=== PATIENT | female | born 1975 | race Caucasian/White ===

== ENCOUNTER 2016-09-05 04:38 | Observation (INO) ==
[2016-09-05] MEDS ORDERED: Ketorolac 30 MG/ML VIAL IVP ONE (04:59)
[2016-09-05] MEDS ORDERED: *HR* HYDROmorphone (PF) 1 MG/ML SYRINGE IVP ONE ×2 (04:59→05:40)
[2016-09-05] MEDS ORDERED: Ondansetron 4 MG/2 ML VIAL IVP ONE (04:59)
--- NOTE | 2016-09-05 05:08 | Emergency Department Note ---
Disposition Clinical Impression: Post-op pain Disposition: Admitted As Inpatient Condition: Good Referrals: Lex Killian DO [Primary Care Provider] - Time of Disposition: 07:01 General Adult HPI - General Stated complaint: "Tightness In Chest Due to Pain Meds" Time Seen by Provider: 09/05/16 04:43 Source: patient Mode of arrival: ambulatory Limitations: no limitations Nursing Notes Reviewed: Yes Vital Signs Reviewed: Yes - History of Present Illness HPI Narrative: Patient returns to the emergency department from home who was seen here a few hours ago for concern for adverse drug reaction after oxycodone. She received hydrocodone on the prior visit and had improvement of symptoms without effect, but returned home with worsening of pain that hydrocodone as well. He notes that she did not her medication at home including hydrocodone, oxycodone, or any NSAIDs. She states that she cannot handle the pain anymore and that she needs something to help with the pain and to help her sleep. She denies any exertional symptoms, pleuritic chest pain, swelling. Prior to taking the pain medication she did not have any symptoms. Pain Scale: 2 - Related Data Previous Rx's Medication Instructions Recorded Clindamycin [Cleocin] 150 mg PO Q6HR #7 capsule 09/03/16 Ibuprofen [Motrin] 800 mg PO Q8HR #30 tablet 09/03/16 OxyCODONE Immed Rel [Roxicodone 5 5 mg PO Q4HR PRN #24 tablet 09/03/16 MG] HYDROcodone/Acet 5/325 mg [Randolph 1 - 2 tab PO Q4H PRN #17 tab 09/05/16 5-325 mg] Naproxen [Naprosyn] 500 mg PO BID #20 tablet 09/05/16 Ondansetron ODT [Zofran ODT] 4 mg SL Q6HR PRN #10 tab.rapdis 09/05/16 Allergies Allergy/AdvReac Type Severity Reaction Status Date / Time Amoxicillin Allergy Hives Verified 07/07/16 11:11 azithromycin Allergy Itching Verified 07/07/16 11:11 acetaminophen [From Tylenol] AdvReac See Verified 09/03/16 09:40 Comments Oxycodone AdvReac Difficulty Verified 09/05/16 01:47 Breathing All systems ED: reviewed and negative except as stated. Past Medical History - Past Medical History Attestation: Yes The following information was validated with the patient. Source: patient Medical history: Reports: arthritis Surgical history: Reports: Psychiatric history: Reports: no psych history - Social History Smoking Status: Never smoker Smokeless Tobacco Status: No Alcohol use: Reports: none Drug use: Reports: none Physical Exam - Head Head exam: atraumatic, normocephalic, normal inspection - Eye Eye exam: Present: normal appearance, PERRL, EOMI - ENT ENT exam: normal exam, normal oropharynx, mucous membranes moist - Neck Neck exam: Present: normal inspection, full ROM, trachea midline - Chest Chest inspection: Present: normal inspection, symmetric chest wall rise - Respiratory Respiratory exam: Clear to auscultation bilaterally without wheezes rales or rhonchi Cardiovascular Cardiovascular exam: Present: regular rate, normal rhythm, normal heart sounds - Abdominal Exam Abdominal exam: Present: soft, Non-Tender. Absent: tenderness, distention, guarding, rebound, rigidity - Extremities Exam Left shoulder incisions are clean dry and intact. Arm is in wedge pillow sling and swath. Normal neurovascular exam distal to surgical site. - Back Exam Back exam: Present: normal inspection, full ROM. Absent: tenderness, CVA tenderness (R), CVA tenderness (L) - Neurological Exam Neurological exam: Present: alert, oriented X3, CN II-XII intact - Psychiatric Anxious and tearful. - Skin Skin exam: Present: warm, dry, intact, normal color - General Limitations: no limitations General appearance: alert Course - Reevaluation(s) Reevaluation #1: Patient was discharged with improved symptoms after tolerating hydrocodone. I do not believe that she actually had an adverse reaction to hydrocodone. At home, she is having significant difficulty finding a position of comfort due to her wedge pillow and is unable to sleep. This is causing her significant pain and anxiety. She returns for these symptoms. We will give her IV Dilaudid, Toradol, and Zofran. We will also give anti-antianxiety medication as needed. EKG was normal. We will reassess the patient after meds to determine disposition. Time: 05:21 Reevaluation #2: Unfortunately patient's pain was not controlled despite Dilaudid 2 and Toradol. She was admitted to the hospitalist by attending physician. Time: 07:01 Vital Signs Temperature 97.6 F 09/05/16 04:39 Pulse Rate 79 09/05/16 04:39 Respiratory Rate 18 09/05/16 04:39 Blood Pressure 128/71 09/05/16 04:39 O2 Sat by Pulse Oximetry 99 09/05/16 04:39 Temperature 97.6 F 09/05/16 04:39 Pulse Rate 79 09/05/16 04:39 Respiratory Rate 18 09/05/16 04:39 Blood Pressure 128/71 09/05/16 04:39 O2 Sat by Pulse Oximetry 99 09/05/16 04:39 Oxygen Delivery Oxygen Delivery Room Air Medical Decision Making - EKG Data EKG #1 EKG attestation: Yes I reviewed and interpreted this EKG. EKG results narrative: Normal sinus rhythm at 75 with normal axis and intervals. No ST elevation or depression. No T-wave inversions. This is a normal EKG. Attestation Statement - Attestation Attestation: I, Sal Block, examined this patient and my medical decision-making was reviewed with the STEAM FITTER SUPERVISOR/PA/Advanced Practice Nurse/Resident Physician. I agree with the documented findings, disposition and treatment plan as described except to the extent set forth below. 40-year-old female presents to the emergency department for the second time bill. She is status post surgery times one day for a left rotator cuff repair. Patient patient was taking oxycodone at home after the surgery but developed feelings of shortness of breath and not feeling able to breathe. Patient was evaluated last night, incision was clean dry and intact. She was given Randolph for pain control and watch her about 45 minutes without complication. Patient felt comfortable to return home at that time however upon returning home her pain returned. She states she waited for about 2 hours of pain resolved however she return to the emergency department now requesting IV pain medications. Patient was given multiple doses of IV pain medications in the emergency department. She does not feel comfortable to return home. Patient will be admitted to the hospital for further care and evaluation of intractable pain due to recent surgery.
[2016-09-05 07:38] LABS: Basophils % 0.3 %; Hematocrit 40.8 % (35.3-44.9); Hemoglobin 13.6 g/dL (11.5-15.4); Immature Granulocytes % 0.4 % (0-4); Lymphocytes % 15.1 %; Mean Corpuscular HGB Conc 33.3 g/dL (31.6-35.5); Mean Corpuscular Hemoglobin 27.6 pg (28.0-33.3); Mean Corpuscular Volume 82.9 fL (83.0-100.0); Mean Platelet Volume 11.2 fL (9.4-12.4); Monocytes # 0.4 K/mcL (0.0-1.3); Monocytes % 5.8 %; Neutrophils # 5.4 K/mcL (1.6-8.9); Platelet Count 218 K/mcL (140-400); Red Blood Count 4.92 M/mcL (3.82-4.97); Red Cell Distribution Width 12.3 % (11.5-14.5); Segmented Neutrophils % 78.4 %
[2016-09-05 08:38] LABS: BUN/Creatinine Ratio 12 (6-26); Blood Urea Nitrogen 9 mg/dL (7-20); Calcium 8.8 mg/dL (8.6-10.8); Carbon Dioxide 16 mEq/L (19-29); Chloride 111 mEq/L (98-109); Glucose 112 mg/dL (70-99); Osmolality,Calculated 285 (280-300); Sodium 138 mEq/L (136-145); eGFR For African Americans > 60 (> 60); eGFR For Non-African Americans > 60 (> 60)
[2016-09-05 08:43] LABS: Potassium 4.9 mEq/L (3.5-4.5)
[2016-09-05] MEDS ORDERED: Acetaminophen 325 MG TABLET PO PRN (08:56)
[2016-09-05] MEDS ORDERED: Ondansetron 4 MG/2 ML VIAL IVP PRN (08:56)
[2016-09-05] MEDS ORDERED: Naloxone 0.4 MG/ML INJ IVP PRN (08:56)
[2016-09-05] MEDS ORDERED: traMADol 50 MG TABLET PO PRN (08:58)
[2016-09-05] MEDS ORDERED: ALPRAZolam 0.25 MG TABLET PO PRN (08:59)
--- NOTE | 2016-09-05 09:02 | Internal Med History&Physical ---
Date of Encounter: 09/05/16 Time of Encounter: 09:00 Assessment and Plan (1) Post-op pain Current visit: Yes Status: Acute Patient will be placed under observation. She will be placed on nonsteroidal anti-inflammatory medications and proton pump inhibitors. She will also be given tramadol as the patient states that she tolerated it in the past. Will avoid oxycodone or hydrocodone. Patient will be given morphine intravenously every 2 hours as needed with close monitoring. Once her pain is adequately controlled with by mouth medications and if she is able to tolerate tramadol and Motrin, she will be discharged back home. (2) Anxiety Current visit: Yes Status: Acute Patient seems to have anxiety complicating her pain. Will place her on Xanax when necessary Internal Medicine - H&P: HPI Chief complaint: Left shoulder pain Admitted From: Emergency Dept Plans for Post Hospital Care: Home History of present illness: Ms. Alvares is a 40 year old female with no significant past medical history who presented to the emergency department due to left shoulder pain. The patient underwent arthroscopy of the left shoulder on Tuesday by Dr. Fraser from orthopedics and underwent lysis of additions and no block. Patient was discharged home with by mouth pain medications. However, patient states that when she took the oxycodone, she experienced tightness in her chest and a sensation of her throat closing and difficulty swallowing. Hence, she presented to the emergency department. Last night, she was given hydrocodone in the emergency department and she tolerated it well. Hence, she was discharged back home on hydrocodone. However, the patient returned to the emergency department and within a few hours stating that she was having the same reaction to hydrocodone. The patient was given intravenous Toradol and intravenous Dilaudid along with Ativan after she presented for the second time. The patient tolerated these medications well. Hence, the patient is being admitted for adequate pain control after her acute surgical intervention over her left shoulder. The patient states that her pain significantly resolved with intravenous Dilaudid. However, she states that the pain is returning and is currently at 3/ 10 in intensity of throbbing pain in the left shoulder without any radiation. The pain is aggravated with movement and relieved with rest and opioid medications. She reports mild nausea and states that the sublingual Zofran helped her. She denies any vomiting, abdominal pain, diarrhea or cost vision. She denies any shortness of breath, cough, wheezing or palpitations. She states that she has used tramadol in the past and did not have any problems with the same. Past Med Surg Social Fam HX - Past Medical History Attestation: Yes The following information was validated with the patient. Source: patient Medical history: arthritis, other (Gluten sensitivity; however, no celiac disease) Psychiatric history: no psych history - Past Surgical History Surgical History: - Social History Smoking Status: Never smoker Smokeless Tobacco Status: No Alcohol use: none Drug use: none Current living situation: Home Activity Level: Independent ambulation Recent Out of Country Travel Within the Last 8 Weeks: No Exposure or Possible Exposure to Illness During Travel: No - Additional Family History Additional family history: Reviewed; not pertinent Internal Medicine - H&P: Meds Clindamycin [Cleocin] 150 mg PO Q6HR #7 capsule 09/03/16 [Rx] Ibuprofen [Motrin] 800 mg PO Q8HR #30 tablet 09/03/16 [Rx] OxyCODONE Immed Rel [Roxicodone 5 MG] 5 mg PO Q4HR PRN #24 tablet 09/03/16 [Rx] HYDROcodone/Acet 5/325 mg [[place] 5-325 mg] 1 - 2 tab PO Q4H PRN #17 tab [Rx] Naproxen [Naprosyn] 500 mg PO BID #20 tablet 09/05/16 [Rx] Ondansetron ODT [Zofran ODT] 4 mg SL Q6HR PRN #10 tab.rapdis 09/05/16 [Rx] Allergies Amoxicillin Allergy (Verified 07/07/16 11:11) Hives azithromycin Allergy (Verified 07/07/16 11:11) Itching acetaminophen [From Tylenol] Adverse Reaction (Verified 09/03/16 09:40) See Comments cannot take due to elevated liver enzymes in the past Oxycodone Adverse Reaction (Verified 09/05/16 01:47) Difficulty Breathing All Systems PM: A 10-system review of systems was performed and is negative for pertinent findings except as documented above in the HPI. Review of systems: 10 systems have been reviewed and are negative except as mentioned in the history of present illness. The patient does mention that she has gluten sensitivity which causes her to have bloating and abdominal distention and flatus but denies having any diarrhea. She is requesting a gluten-free diet while in the hospital. - Constitutional Vitals: Temp Pulse Resp BP Pulse Ox 97.6 F 68 16 102/60 97 09/05/16 04:39 09/05/16 07:31 09/05/16 07:31 09/05/16 07:31 09/05/16 07:31 Exam: Gen.: Lying in bed. Mild to moderate distress. Eyes: Pupils equal, round and reactive to light. Extraocular muscles intact. ENT: Moist mucous membranes. No oropharyngeal erythema or discharge. Chest: Clear to auscultation bilaterally. No adventitious sounds present. CVS: First and second heart sounds present. No murmurs, rubs or gallops. Abdomen: Soft, nontender, nondistended. Bowel sounds present. No hepatosplenomegaly. Skin: No decubitus ulcers appreciated. HAND LAMINATOR: No focal neuro deficits present. Unable to assess the left upper extremity due to being in a sling Psychiatric: Alert, awake and oriented to time, place and person. Lymphatic system: No lymphadenopathy appreciated. Musculoskeletal: Left upper extremity is in a sling. Tenderness to palpation over the left shoulder joint. Incisional scar seen on the left shoulder joint. Internal Med - H&P Results - Labs CBC & Chem 7: 09/05/16 07:18 09/05/16 08:03 - EKG Data -: EKG Interpreted by Myself EKG shows normal: sinus rhythm Rate: normal
[2016-09-05] MEDS: Ibuprofen 400 MG TABLET PO SCH ×2 (10:58→19:47)
[2016-09-05] MEDS: 0.9 % Sodium Chloride 1,000 ML IVC SCH (10:59)
[2016-09-05] MEDS: *HR* Morphine 2 MG/ML SYRINGE IVP PRN ×4 (11:25→23:43)
[2016-09-05] MEDS: *HR* Heparin 5,000 UNIT/ML VIAL SQ SCH ×2 (13:23→23:18)
[2016-09-05] MEDS: Ibuprofen 600 MG TABLET PO SCH ×3 (13:23→23:42)
[2016-09-05] MEDS ORDERED: MOM Conc 10 ML UD.LIQ PO ONE (19:46)
[2016-09-06] MEDS: 0.9 % Sodium Chloride 1,000 ML IVC SCH (02:02)
[2016-09-06] MEDS: *HR* Heparin 5,000 UNIT/ML VIAL SQ SCH (06:02)
[2016-09-06] MEDS: Ibuprofen 600 MG TABLET PO SCH ×2 (06:02→11:45)
[2016-09-06] MEDS: *HR* Morphine 2 MG/ML SYRINGE IVP PRN (06:03)
--- NOTE | 2016-09-06 08:40 | Orthopedic Consult Note ---
Date of Encounter: 09/06/16 Time of Encounter: 08:38 Assessment and Plan (1) Post-op pain Current Visit: No Status: Acute POD#3 - Left Shoulder, Lysis of adhesions, Labral repair, SAD Patient doing well, pain improved. No chest pain or anxiety at this time. Plan to D/C today. PT appt set and faxed to the floor. PT to be started this week. Plan to D/C brace this week. No lifting/pulling or pushing. Encouraged elbow ROM and home builder strengthening. Encouraged Tylenol, IBU and will D/C with Tramadol for additional pain control. F/up set for Tuesday. History of Present Illness Chief complaint: Post-op pain HPI: Ms. Alvares is a 41 year old female, patient reported to ED after nerve block wore off on Tuesday x 2 secondary to refractory shoulder pain, despite two different narcotic medications. She stated the Oxycodone and Hydrocodone both made her anxiety worse and she had a lot of chest discomfort. She has been admitted for pain control, receiving IV pain medication. I educated her that this will be stopped and she will discharge on PO pain medication. No obvious s/s of infection, swelling controlled with ICE. Reviewed operative plan with her and rehabilitation plan. Past Med Surg Social Fam HX - Past Medical History Medical history: arthritis Psychiatric history: no psych history - Past Surgical History Surgical History: - Social History Smoking Status: Former smoker Smokeless Tobacco Status: No Alcohol use: none Drug use: none - Family History Mother History Unknown: Yes Medications and Allergies Clindamycin [Cleocin] 150 mg PO Q6HR #7 capsule 09/03/16 [Rx] Ibuprofen [Motrin] 800 mg PO Q8HR #30 tablet 09/03/16 [Rx] HYDROcodone/Acet 5/325 mg [[place] 5-325 mg] 1 - 2 tab PO Q4H PRN #17 tab [Rx] Naproxen [Naprosyn] 500 mg PO BID #20 tablet 09/05/16 [Rx] Ondansetron ODT [Zofran ODT] 4 mg SL Q6HR PRN #10 tab.rapdis 09/05/16 [Rx] Allergies Amoxicillin Allergy (Verified 07/07/16 11:11) Hives azithromycin Allergy (Verified 07/07/16 11:11) Itching acetaminophen [From Tylenol] Adverse Reaction (Verified 09/03/16 09:40) See Comments cannot take due to elevated liver enzymes in the past Oxycodone Adverse Reaction (Verified 09/05/16 01:47) Difficulty Breathing All Systems Reviewed: A 10-system review of systems was performed and is negative for pertinent findings except as documented above in the HPI. - Constitutional Constitutional: as per HPI Physical Exam - Constitutional Vitals: Temp Pulse Resp BP Pulse Ox 98.1 F 65 16 119/76 98 09/06/16 06:57 09/06/16 06:57 09/06/16 06:57 09/06/16 06:57 09/06/16 06:57 - Shoulder left Effusion grade shoulder exam: No Tenderness w/ palpation shoulder: anterior ROM: abduction: abnormal ROM: forward flexion: abnormal Results - Labs Result Diagrams: 09/05/16 07:18 09/05/16 08:03 Labs: Abnormal lab results MCV 82.9 fL (83.0-100.0) L 09/05/16 07:18 MCH 27.6 pg (28.0-33.3) L 09/05/16 07:18 Potassium 4.9 mEq/L (3.5-4.5) H 09/05/16 08:03 Chloride 111 mEq/L (98-109) H 09/05/16 08:03 Carbon Dioxide 16 mEq/L (19-29) L 09/05/16 08:03 Glucose 112 mg/dL (70-99) H 09/05/16 08:03 All other labs normal. Consult Discharge Plan - Plan
--- NOTE | 2016-09-06 11:07 | Discharge Summary ---
Date of Encounter: 09/06/16 Time of Encounter: 10:15 - Discharge Diagnosis (1) Post-op pain Priority: Primary Status: Acute Comments: patient with adverse reactions to oxycodone and hydrocodone. tolerated tramadol while admitted and sent home on it. followup outpatient in 2 days as scheduled with ortho (2) Adverse drug effect Priority: Primary Status: Resolved (3) Anxiety Priority: Secondary Status: Chronic - Discharge Medications Prescriptions: Docusate [Colace] 100 mg PO BID PRN #30 capsule PRN Reason: Constipation Ibuprofen 400 mg PO Q6H PRN #30 tablet PRN Reason: pain Omeprazole 20 mg PO DAILY #14 tablet. Tramadol HCl [Ultram] 100 mg PO Q6H PRN #30 tab PRN Reason: Pain Home Medications: Clindamycin [Cleocin] 150 mg PO Q6HR #7 capsule 09/03/16 [Rx] Naproxen [Naprosyn] 500 mg PO BID #20 tablet 09/05/16 [Rx] Ondansetron ODT [Zofran ODT] 4 mg SL Q6HR PRN #10 tab.rapdis 09/05/16 [Rx] Docusate [Colace] 100 mg PO BID PRN #30 capsule 09/06/16 [Rx] Ibuprofen 400 mg PO Q6H PRN #30 tablet 09/06/16 [Rx] Omeprazole 20 mg PO DAILY #14 tablet. 09/06/16 [Rx] Tramadol HCl [Ultram] 100 mg PO Q6H PRN #30 tab 09/06/16 [Rx] Allergies/Adverse Reactions: Allergies Amoxicillin Allergy (Verified 07/07/16 11:11) Hives azithromycin Allergy (Verified 07/07/16 11:11) Itching acetaminophen [From Tylenol] Adverse Reaction (Verified 09/03/16 09:40) See Comments cannot take due to elevated liver enzymes in the past Oxycodone Adverse Reaction (Verified 09/05/16 01:47) Difficulty Breathing Date of admission: 09/05/16 08:40 Primary care physician: Collin Leblanc Discharging clinician: Anna Fuller Anticipated date of discharge: 09/06/16 - Patient Status Disposition: Home, Self-Care Condition: Good Functional capacity at discharge: independent ambulation Overall status at discharge: patient is back to baseline - Discharge Instructions Follow Up With: Lex Killian DO [Primary Care Provider] - Graham Fraser MD [Partnered Physician] - Forms: ED Satisfaction Letter Additional Instructions: Follow-up with orthopedics as scheduled, follow up with primary care provider as needed - Diet and Activity Activity: as per physical therapy, increase activity as tolerated, return to work once cleared by your PCP/specialist Diet: regular diet Hospital course: Ms. Alvares is a 41 year old female with no significant past medical history. She had arthroscopy on her left shoulder with lysis of adhesions per Dr Fraser on the Tuesday prior to presentation. On Tuesday, she reported to the emergency department stating that her oxycodone pain medication made her feel as if her chest was tight and there was a sensation of her throat closing. She was given hydrocodone in the emergency department and appeared to tolerate it well so she was sent home on hydrocodone. She then returned the next day stating that the hydrocodone had made her feel the same way that the oxycodone did this she was admitted to the hospitalist service for further evaluation and management. She was given IV Toradol and IV Dilaudid along with Ativan. Her pain was then controlled and she was transitioned over to tramadol and did not have any adverse reactions to this medication. She was seen by orthopedics who cleared her for outpatient follow-up. She was discharged home in stable condition with close outpatient follow-up with orthopedics recommended. Of note , patient requesting 400 mg of ibuprofen rather than 6 or 800. She was also given omeprazole and Colace. - Time Spent with Patient Total time spent providing and/or coordinating discharge services: - Constitutional Vitals: Temp Pulse Resp BP Pulse Ox 98.1 F 65 16 119/76 98 09/06/16 06:57 09/06/16 06:57 09/06/16 06:57 09/06/16 06:57 09/06/16 06:57 General appearance: Present: A&O X 3, pleasant, no acute distress, answers questions appropriately - Head Head exam: Present: atraumatic, normocephalic - Eye Eye exam: Present: PERRL, conjuntiva pink, sclera anicteric Pupils: Present: PERRL - Neck Neck exam general surgery: Present: supple, trachea midline. Absent: lymphadenopathy - Respiratory Respiratory exam: Present: CTAB. Absent: accessory muscle use, rales, respiratory distress, rhonchi, wheezes - Cardiovascular Cardiovascular exam: Present: RRR, +S1, +S2. Absent: diastolic murmur, gallop, rubs, systolic murmur - GI/Abdominal GI/Abdominal exam: Present: normal bowel sounds, soft, no peritoneal signs. Absent: distended, tenderness - Extremities Exam Extremities exam: Present: warm, radial pulses palpable and symetrical. Absent : calf tenderness, cyanotic, pedal edema - Neurological Exam Neurological exam: Present: alert, CN II-XII intact, normal gait, oriented X3, no focal deficits, strengths equal and symetr throughout. Absent: pronater drift, facial droop, speech deficit - Skin Skin exam: Present: dry, intact, normal color, warm
[2016-09-06 11:28] VITALS: BP 124/80
--- NOTE | 2016-09-07 16:39 | Electrocardiograph Report ---
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
== END 2016-09-06 12:50 | disposition home or self-care (01) ==
LOC: EMEROO 04:38 → 3BNU 04:38
PROVIDERS: ADMIT Internal Medicine Sleep Medicine; ATTEND Nurse Practitioner Family